=== PATIENT | female | born 1970 | race Caucasian/White ===

== ENCOUNTER → 2016-10-06 | Outpatient (REF) | payer BC ==
[2016-10-06 14:05] LABS: BASO % 0.6 % (0.0-1.0); EOS # 0.2 K/mm3 (0.0-0.50); EOS % 2.6 % (0.0-3.0); LARGE UNSTAINED CELL # 0.1 K/mm3 (0.0-0.4); LARGE UNSTAINED CELL % 1.6 % (0.0-4.0); LYMPH # 2.3 K/mm3 (1.5-4.5); LYMPH % 33.4 % (24.0-44.0); MEAN CORPUSCULAR HEMOGLOBIN 30.6 pg (27.0-33.0); MEAN CORPUSCULAR HGB CONC 33.6 g/dl (32.0-36.5); MEAN CORPUSCULAR VOLUME 91.1 fl (80.0-96.0); MONO # 0.3 K/mm3 (0.0-0.8); MONO % 4.5 % (0.0-5.0); NEUTROPHILS # 3.8 K/mm3 (1.8-7.7); NEUTROPHILS % 57.3 % (36.0-66.0); PLATELET COUNT, AUTOMATED 281 k/mm3 (150-450); RED CELL DISTRIBUTION WIDTH 12.5 % (11.5-14.5); WHITE BLOOD COUNT 6.6 K/mm3 (4.0-10.0)
[2016-10-06 14:21] LABS: ALBUMIN 3.5 GM/DL (3.2-5.2); ALBUMIN/GLOBULIN RATIO 0.92 (1.00-1.93); ALKALINE PHOSPHATASE 73 U/L (45-117); ALT/SGPT 14 U/L (12-78); ANION GAP 8 MEQ/L (8-16); AST/SGOT 10 U/L (15-37); BILIRUBIN,TOTAL 0.2 MG/DL (0.2-1.0); BLOOD UREA NITROGEN 15 MG/DL (7-18); CALCIUM LEVEL 8.7 MG/DL (8.5-10.1); CARBON DIOXIDE LEVEL 26 MEQ/L (21-32); CHLORIDE LEVEL 105 MEQ/L (98-107); CHOLESTEROL LEVEL 168 MG/DL (<200); CREATININE FOR GFR 0.59 MG/DL (0.55-1.02); GLOMERULAR FILTRATION RATE > 60.0 (>58); GLUCOSE, FASTING 73 MG/DL (70-105); POTASSIUM SERUM 4.1 MEQ/L (3.5-5.1); SODIUM LEVEL 139 MEQ/L (136-145); TOTAL PROTEIN 7.3 GM/DL (6.4-8.2); TRIGLYCERIDES LEVEL 145 MG/DL (<150)
== END ==
LOC: M SFHCPLAZ 10:19
PROVIDERS: ATTEND Nurse Practitioner Family
DX: Z00.00 Encounter for general adult medical examination without abnormal findings (principal); Z13.220 Encounter for screening for lipoid disorders

== ENCOUNTER → 2016-10-06 | Outpatient (REF) | payer BC | LOC: M SFHCPLAZ 11:23 | PROVIDERS: ATTEND Nurse Practitioner Family | DX: Z00.00 Encounter for general adult medical examination without abnormal findings (principal); Z13.220 Encounter for screening for lipoid disorders ==

== ENCOUNTER → 2017-03-15 | Outpatient (REF) | payer BC | LOC: M LAB REF 16:19 | PROVIDERS: ATTEND Physician Assistant | DX: J06.9 Acute upper respiratory infection, unspecified (principal) ==

== ENCOUNTER → 2017-11-03 | Outpatient (REF) | payer BC ==
[2017-11-03 13:26] LABS: BASO % 0.6 % (0.0-1.0); EOS # 0.2 10^3/uL (0.0-0.50); EOS % 2.8 % (0.0-3.0); HEMATOCRIT 38.2 % (36.0-47.0); IMMATURE GRANULOCYTE % 0.2 % (0-3.0); LYMPH # 2.3 10^3/uL (1.5-4.5); LYMPH % 37.7 % (24.0-44.0); MEAN CORPUSCULAR HEMOGLOBIN 30.9 pg (27.0-33.0); MEAN CORPUSCULAR VOLUME 90.7 fl (80.0-96.0); MONO # 0.3 10^3/uL (0.0-0.8); MONO % 5.4 % (0.0-5.0); NEUTROPHILS # 3.3 10^3/uL (1.8-7.7); NEUTROPHILS % 53.3 % (36.0-66.0); PLATELET COUNT, AUTOMATED 277 10^3/uL (150-450); RED BLOOD COUNT 4.21 10^6/uL (4.00-5.40); WHITE BLOOD COUNT 6.2 10^3/uL (4.0-10.0)
[2017-11-03 13:57] LABS: ALBUMIN 3.5 GM/DL (3.2-5.2); ALBUMIN/GLOBULIN RATIO 0.85 (1.00-1.93); ALKALINE PHOSPHATASE 81 U/L (45-117); ALT/SGPT 21 U/L (12-78); ANION GAP 7 MEQ/L (8-16); AST/SGOT 15 U/L (7-37); BILIRUBIN,TOTAL 0.3 MG/DL (0.2-1.0); BLOOD UREA NITROGEN 14 MG/DL (7-18); CALCIUM LEVEL 8.5 MG/DL (8.5-10.1); CARBON DIOXIDE LEVEL 26 MEQ/L (21-32); CHLORIDE LEVEL 107 MEQ/L (98-107); CHOLESTEROL LEVEL 176 MG/DL (<200); CREATININE FOR GFR 0.75 MG/DL (0.55-1.30); GLOMERULAR FILTRATION RATE > 60.0 (>58); GLUCOSE, FASTING 81 MG/DL (70-100); HDL CHOLESTEROL 83 MG/DL (>40); LDL CHOLESTEROL 71.8 MG/DL (<100); NON-HDL-C 93 MG/DL; POTASSIUM SERUM 4.2 MEQ/L (3.5-5.1); SODIUM LEVEL 140 MEQ/L (136-145); TOTAL PROTEIN 7.6 GM/DL (6.4-8.2); TRIGLYCERIDES LEVEL 106 MG/DL (<150)
== END ==
LOC: M SFHCPLAZ 10:17
DX: Z00.00 Encounter for general adult medical examination without abnormal findings (principal); F32.9 Major depressive disorder, single episode, unspecified; Z13.220 Encounter for screening for lipoid disorders
CPT/HCPCS: 84443

== ENCOUNTER → 2018-06-11 | Outpatient (CLI) | payer BC ==
[2018-06-11 11:13] LABS: HEMATOCRIT 40.7 % (36.0-47.0); HEMOGLOBIN 13.6 g/dl (12.0-15.5); MEAN CORPUSCULAR HEMOGLOBIN 30.4 pg (27.0-33.0); MEAN CORPUSCULAR HGB CONC 33.4 g/dl (32.0-36.5); MEAN CORPUSCULAR VOLUME 91.1 fl (80.0-96.0); PLATELET COUNT, AUTOMATED 317 10^3/uL (150-450); RED BLOOD COUNT 4.47 10^6/uL (4.00-5.40)
[2018-06-11 11:26] LABS: INR 0.93; PARTIAL THROMBOPLASTIN TIME 26.7 SECONDS (25.4-37.6); PROTHROMBIN TIME 12.6 SECONDS (12.1-14.4)
== END ==
LOC: M LAB 09:32
PROVIDERS: ATTEND Nurse Practitioner Family
DX: N93.9 Abnormal uterine and vaginal bleeding, unspecified (principal)

== ENCOUNTER → 2018-07-30 | Outpatient (CLI) | payer BC ==
--- NOTE | 2018-07-31 03:16 | REP ---
Clinical: Lumbago with right-sided sciatica. Technique: AP, lateral, bilateral oblique and coned-down views of the lumbosacral spine. Findings: Lordosis maintained. No acute fracture / compression injury or subluxation. Advanced degenerative disc osteophyte complex at L5-S1 includes endplate sclerosis, osteophytosis, hypertrophic facet changes and near complete disc space obliteration. Mild degenerative changes noted throughout the remainder of the visualized thoracolumbar spine including minimal endplate sclerosis and early marginal spurring. Impression: Advanced focal degenerative changes at L5-S1. Electronically Signed by Renato Galdamez MD 07/31/2018 03:08 A
== END ==
LOC: M WUC 18:53
PROVIDERS: ATTEND Physician Assistant
DX: M54.41 Lumbago with sciatica, right side (principal); M51.37 Other intervertebral disc degeneration, lumbosacral region

== ENCOUNTER → 2018-09-04 | Outpatient (CLI) | payer BC ==
--- NOTE | 2018-09-04 11:30 | REP ---
RIGHT ELBOW, FOUR VIEWS: HISTORY: Pain. There is no acute fracture or dislocation. The joint space is normal in appearance. IMPRESSION: There is no acute fracture or dislocation. Electronically Signed by Luis Antonio García MD 09/04/2018 11:31 A
== END ==
LOC: M WUC 10:30
PROVIDERS: ATTEND Physician Assistant
DX: M25.521 Pain in right elbow (principal)

== ENCOUNTER → 2018-10-16 | Outpatient (REF) | payer BC ==
[2018-10-16 12:21] LABS: BASO % 0.5 % (0.0-1.0); EOS # 0.1 10^3/uL (0.0-0.50); EOS % 1.1 % (0.0-3.0); HEMOGLOBIN 13.5 g/dl (12.0-15.5); LYMPH # 2.3 10^3/uL (1.5-4.5); LYMPH % 34.9 % (24.0-44.0); MEAN CORPUSCULAR HEMOGLOBIN 29.5 pg (27.0-33.0); MEAN CORPUSCULAR HGB CONC 32.1 g/dl (32.0-36.5); MEAN CORPUSCULAR VOLUME 91.9 fl (80.0-96.0); MONO # 0.4 10^3/uL (0.0-0.8); MONO % 5.3 % (0.0-5.0); NEUTROPHILS # 3.9 10^3/uL (1.8-7.7); NEUTROPHILS % 57.9 % (36.0-66.0); PLATELET COUNT, AUTOMATED 284 10^3/uL (150-450); RED BLOOD COUNT 4.57 10^6/uL (4.00-5.40); WHITE BLOOD COUNT 6.6 10^3/uL (4.0-10.0)
[2018-10-16 12:26] LABS: ALBUMIN 3.6 GM/DL (3.2-5.2); ALT/SGPT 18 U/L (12-78); BILIRUBIN,TOTAL 0.2 MG/DL (0.2-1.0); BLOOD UREA NITROGEN 14 MG/DL (7-18); CALCIUM LEVEL 8.3 MG/DL (8.5-10.1); CARBON DIOXIDE LEVEL 27 MEQ/L (21-32); CHLORIDE LEVEL 105 MEQ/L (98-107); CREATININE FOR GFR 0.78 MG/DL (0.55-1.30); GLOMERULAR FILTRATION RATE > 60.0 (>58); GLUCOSE, FASTING 86 MG/DL (70-100); POTASSIUM SERUM 4.1 MEQ/L (3.5-5.1); SODIUM LEVEL 140 MEQ/L (136-145); TOTAL PROTEIN 8.2 GM/DL (6.4-8.2)
== END ==
LOC: M SFHCPLAZ 08:27
PROVIDERS: ATTEND Nurse Practitioner Family
DX: R19.7 Diarrhea, unspecified (principal)

== ENCOUNTER → 2018-10-17 | Outpatient (REF) | payer BC | LOC: M SFHCPLAZ 10:37 | PROVIDERS: ATTEND Nurse Practitioner Family | DX: R19.7 Diarrhea, unspecified (principal) ==

== ENCOUNTER → 2018-11-09 | Outpatient (REF) | payer BC ==
[2018-11-09 18:02] LABS: THYROID STIMULATING HORMONE 1.04 uIU/ML (0.358-3.740); TOTAL 25(OH) VITAMIN D 27.8 NG/ML (30.0-100.0)
== END ==
LOC: M SFHCPLAZ 15:37
PROVIDERS: ATTEND Nurse Practitioner Family
DX: F34.1 Dysthymic disorder (principal)

== ENCOUNTER → 2018-12-19 | Outpatient (REF) | payer BC ==
[2018-12-19 12:48] LABS: CHOLESTEROL RISK RATIO 2.75 (<5)
== END ==
LOC: M SFHCPLAZ 10:18
PROVIDERS: ATTEND Nurse Practitioner Family
DX: Z13.220 Encounter for screening for lipoid disorders (principal)

== ENCOUNTER → 2019-01-03 | Outpatient (REF) | payer BC ==
[2019-01-03 15:56] LABS: BLOOD UREA NITROGEN 14 MG/DL (7-18); CREATININE FOR GFR 0.75 MG/DL (0.55-1.30); FOLATE 18.2 NG/ML; GLOMERULAR FILTRATION RATE > 60.0 (>58); RHEUMATOID FACTOR QUANT < 10.0 IU/ML (<15.0); TOTAL 25(OH) VITAMIN D 26.6 NG/ML (30.0-100.0); VITAMIN B12 LEVEL 323 PG/ML
[2019-01-06 14:38] LABS: ANTINUCLEAR ANTIBODIES DIRECT Negative (Negative); VITAMIN B1 LEVEL WHOLE BLOOD 134.1 nmol/L (66.5-200.0); VITAMIN B6,PYRIDOXAL PHOSPHATE 20.5 ug/L (2.0-32.8); VITAMIN E(ALPHA TOCOPHEROL) 12.6 mg/L (7.0-25.1); VITAMIN E(GAMMA TOCOPHEROL) 2.1 mg/L (0.5-5.5)
== END ==
LOC: M LABNEURO 08:56
PROVIDERS: ATTEND Psychiatry & Neurology Neurology
DX: R51 Headache (principal); G31.84 Mild cognitive impairment of uncertain or unknown etiology

== ENCOUNTER → 2019-01-09 | Outpatient (CLI) | payer BC ==
--- NOTE | 2019-01-09 16:45 | REPMRS ---
Patient History The patient states she has not had a clinical breast exam in over a year. Family history of colorectal cancer at age 50 or over in maternal grandmother. Taking hormonal contraceptives for 7 years 3 months. Took unspecified hormones for 2 years 6 months. 3D TOMOSYNTHESIS WAS PERFORMED. The Cheo Medel lifetime risk for breast cancer is 12.5%. Digital Woman Screen Mammo: January 09, 2019 - Exam #: [id number] Bilateral CC and MLO view(s) were taken. Technologist: Marie Byers, Technologist Prior study comparison: September 27, 2017, digital woman screen mammo performed at [facility]. April 18, 2014, bilateral bilat screen digital mammo, performed at [facility] ([place] FINDINGS: The breast tissue is heterogeneously dense. This may lower the sensitivity of mammography. There has been no change in the appearance of the mammogram from the prior studies. There is a moderate amount of residual fibroglandular tissue which is fairly symmetric. There is no interval development of dominant mass, areas of architectural distortion, or clustered microcalcification typical of malignancy. Assessment: BI-RADS/ACR category 1 mammogram. Negative Mammogram. Recommendation Routine screening mammogram in 1 year (for women over age 40). This mammogram was interpreted with the aid of an FDA-approved computer-aided dectection system. Electronically Signed By: Diogenes Morales MD 01/09/19 0294
== END ==
LOC: M WHC 08:07
PROVIDERS: ATTEND Nurse Practitioner Family
DX: Z12.31 Encounter for screening mammogram for malignant neoplasm of breast (principal); Z92.0 Personal history of contraception

== ENCOUNTER → 2020-04-29 | Outpatient (CLI) | payer BC, OTHER ==
[2020-04-29 21:21] LABS: HEMOGLOBIN A1c 5.3 %
[2020-04-29 21:35] LABS: ALBUMIN 3.8 GM/DL (3.2-5.2); ALT/SGPT 22 U/L (12-78); BILIRUBIN,TOTAL 0.4 MG/DL (0.2-1.0); BLOOD UREA NITROGEN 12 MG/DL (7-18); CALCIUM LEVEL 8.9 MG/DL (8.5-10.1); CARBON DIOXIDE LEVEL 27 MEQ/L (21-32); CHLORIDE LEVEL 103 MEQ/L (98-107); CHOLESTEROL LEVEL 196 MG/DL (<200); CREATININE FOR GFR 0.68 MG/DL (0.55-1.30); FREE T4 1.05 NG/DL (0.76-1.46); GLOMERULAR FILTRATION RATE > 60.0 (>58); GLUCOSE, FASTING 86 MG/DL (70-100); HDL CHOLESTEROL 70 MG/DL (>40); LDL CHOLESTEROL 97 MG/DL (<100); NON-HDL-C 126 MG/DL; POTASSIUM SERUM 4.1 MEQ/L (3.5-5.1); SODIUM LEVEL 137 MEQ/L (136-145); TOTAL 25(OH) VITAMIN D 32.8 NG/ML (30.0-100.0); TOTAL PROTEIN 7.9 GM/DL (6.4-8.2); TRIGLYCERIDES LEVEL 145 MG/DL (<150)
== END ==
LOC: M PLALAB 12:10
PROVIDERS: ATTEND Nurse Practitioner Family
DX: Z13.220 Encounter for screening for lipoid disorders (principal); E55.9 Vitamin D deficiency, unspecified; E78.5 Hyperlipidemia, unspecified

== ENCOUNTER → 2021-04-16 | Outpatient (CLI) | payer OTHER ==
[2021-04-16 15:59] LABS: BASO # 0.1 10^3/uL (0.0-0.2); BASO % 0.8 % (0.0-1.0); EOS # 0.2 10^3/uL (0.0-0.5); HEMATOCRIT 37.9 % (36.0-47.0); HEMOGLOBIN 12.2 g/dl (12.0-15.5); LYMPH # 2.3 10^3/uL (1.5-5.0); LYMPH % 31.8 % (24.0-44.0); MEAN CORPUSCULAR HEMOGLOBIN 30.3 pg (27.0-33.0); MEAN CORPUSCULAR HGB CONC 32.2 g/dl (32.0-36.5); MEAN CORPUSCULAR VOLUME 94.3 fl (80.0-96.0); MONO # 0.4 10^3/uL (0.0-0.8); MONO % 4.9 % (2.0-8.0); NEUTROPHILS # 4.4 10^3/uL (1.5-8.5); NEUTROPHILS % 60.2 % (36.0-66.0); PLATELET COUNT, AUTOMATED 358 10^3/uL (150-450); RED BLOOD COUNT 4.02 10^6/uL (4.00-5.40); WHITE BLOOD COUNT 7.3 10^3/uL (4.0-10.0)
[2021-04-16 16:38] LABS: ALT/SGPT 17 U/L (12-78); BILIRUBIN,TOTAL 0.2 MG/DL (0.2-1.0); BLOOD UREA NITROGEN 15 MG/DL (7-18); CALCIUM LEVEL 9.1 MG/DL (8.5-10.1); CARBON DIOXIDE LEVEL 28 MEQ/L (21-32); CHLORIDE LEVEL 107 MEQ/L (98-107); GLOMERULAR FILTRATION RATE > 60.0 (>58); GLUCOSE, FASTING 130 MG/DL (70-100); POTASSIUM SERUM 4.6 MEQ/L (3.5-5.1); SODIUM LEVEL 140 MEQ/L (136-145); TRIGLYCERIDES LEVEL 154 MG/DL (<150)
[2021-04-16 16:39] LABS: ALBUMIN 3.2 GM/DL (3.2-5.2); CHOLESTEROL LEVEL 190 MG/DL (<200); CHOLESTEROL RISK RATIO 2.567 (<5); FREE T4 0.96 NG/DL (0.76-1.46); HDL CHOLESTEROL 74 MG/DL (>40); LDL CHOLESTEROL 85 MG/DL (<100); NON-HDL-C 116 MG/DL; THYROID STIMULATING HORMONE 0.885 uIU/ML (0.358-3.740); TOTAL PROTEIN 7.2 GM/DL (6.4-8.2)
== END ==
LOC: M PLALAB 11:27
PROVIDERS: ATTEND Nurse Practitioner Family
DX: E78.5 Hyperlipidemia, unspecified (principal); E55.9 Vitamin D deficiency, unspecified; Z79.1 Long term (current) use of non-steroidal anti-inflammatories (NSAID)

== ENCOUNTER 2021-09-23 16:21 | Emergency (ER) | payer OTHER ==
[~2021-09-23] VITALS: Ht 160 cm; Wt 65.7 kg
[2021-09-23] MEDS ORDERED: TOPI100T9 (16:55)
[2021-09-23] MEDS ORDERED: XULA1DIS (16:55)
[2021-09-23] MEDS ORDERED: CITA20TA6 (16:55)
[2021-09-23] MEDS ORDERED: NAPR-832 (16:56)
[2021-09-23] MEDS ORDERED: DOXY50CA (16:56)
[2021-09-23 19:43] VITALS: BP 134/89
== END 2021-09-23 20:17 | disposition home or self-care (01) ==
LOC: M ED 16:21
DX: U07.1 COVID-19 (principal); G43.909 Migraine, unspecified, not intractable, without status migrainosus

== ENCOUNTER → 2022-03-01 | Outpatient (CLI) | payer OTHER ==
[~2022-03-01] MED LIST: CITA20TA6; DOXY50CA; NAPR-832; TOPI100T9; XULA1DIS
[2022-03-01 14:32] LABS: ALBUMIN 3.7 GM/DL (3.2-5.2); ALT/SGPT 24 U/L (12-78); BILIRUBIN,TOTAL 0.3 MG/DL (0.2-1.0); BLOOD UREA NITROGEN 14 MG/DL (7-18); CALCIUM LEVEL 9.2 MG/DL (8.5-10.1); CARBON DIOXIDE LEVEL 25 MEQ/L (21-32); CHLORIDE LEVEL 105 MEQ/L (98-107); CHOLESTEROL LEVEL 241 MG/DL (<200); CHOLESTEROL RISK RATIO 3.129 (<5); CREATININE FOR GFR 0.79 MG/DL (0.55-1.30); GLOMERULAR FILTRATION RATE > 60.0 (>51); GLUCOSE, FASTING 92 MG/DL (70-100); HDL CHOLESTEROL 77 MG/DL (>40); LDL CHOLESTEROL 139 MG/DL (<100); NON-HDL-C 164 MG/DL; POTASSIUM SERUM 4.4 MEQ/L (3.5-5.1); SODIUM LEVEL 136 MEQ/L (136-145); TOTAL PROTEIN 7.8 GM/DL (6.4-8.2); TRIGLYCERIDES LEVEL 127 MG/DL (<150)
[2022-03-01 15:02] LABS: TOTAL 25(OH) VITAMIN D 28.2 NG/ML (30.0-100.0)
[2022-03-01 16:26] LABS: HEMOGLOBIN A1c 5.3 %
== END ==
LOC: M PLALAB 09:42
PROVIDERS: ATTEND Nurse Practitioner Family
DX: E55.9 Vitamin D deficiency, unspecified (principal); E78.5 Hyperlipidemia, unspecified; R73.09 Other abnormal glucose

== ENCOUNTER → 2023-05-17 | Outpatient (CLI) | payer BC ==
[2023-05-17 15:43] LABS: BASO # 0.1 10^3/uL (0.0-0.2); BASO % 0.6 % (0.0-1.0); EOS # 0.2 10^3/uL (0.0-0.5); EOS % 2.1 % (0.0-3.0); HEMATOCRIT 39.3 % (36.0-47.0); HEMOGLOBIN 13.4 g/dl (12.0-15.5); LYMPH # 3.8 10^3/uL (1.5-5.0); LYMPH % 44.3 % (24.0-44.0); MEAN CORPUSCULAR HEMOGLOBIN 31.3 pg (27.0-33.0); MEAN CORPUSCULAR HGB CONC 34.1 g/dl (32.0-36.5); MEAN CORPUSCULAR VOLUME 91.8 fl (80.0-96.0); MONO # 0.5 10^3/uL (0.0-0.8); MONO % 6.3 % (2.0-8.0); NEUTROPHILS % 46.5 % (36.0-66.0); PLATELET COUNT, AUTOMATED 271 10^3/uL (150-450); RED BLOOD COUNT 4.28 10^6/uL (4.00-5.40); WHITE BLOOD COUNT 8.6 10^3/uL (4.0-10.0)
[2023-05-17 16:07] LABS: ALBUMIN 3.8 G/DL (3.2-5.2); ALKALINE PHOSPHATASE 116 U/L (46-116); ALT/SGPT 58 U/L (7.0-40); AST/SGOT 28 U/L (<34); BILIRUBIN,TOTAL 0.4 MG/DL (0.3-1.2); BLOOD UREA NITROGEN 22 MG/DL (9-23); CALCIUM LEVEL 8.7 MG/DL (8.5-10.1); CARBON DIOXIDE LEVEL 24 MMOL/L (20-31); CHLORIDE LEVEL 107 MMOL/L (98-107); CHOLESTEROL LEVEL 225 MG/DL (<200); CHOLESTEROL RISK RATIO 3.59 (<5); CREATININE FOR GFR 0.68 MG/DL (0.55-1.30); GLOMERULAR FILTRATION RATE > 60.0 (>51); GLUCOSE, FASTING 88 MG/DL (60-100); HDL CHOLESTEROL 62.6 MG/DL (>40); LDL CHOLESTEROL 95.8 MG/DL (<100); NON-HDL-C 162.4 MG/DL; POTASSIUM SERUM 4.3 MMOL/L (3.5-5.1); SODIUM LEVEL 140 MMOL/L (136-145); TOTAL PROTEIN 7.4 G/DL (5.7-8.2); TRIGLYCERIDES LEVEL 333 MG/DL (<150)
[2023-05-17 16:09] LABS: TOTAL 25(OH) VITAMIN D 18.5 NG/ML (20.0-100.0)
== END ==
LOC: M PLALAB 14:45
PROVIDERS: ATTEND Nurse Practitioner Family
DX: E78.5 Hyperlipidemia, unspecified (principal); E55.9 Vitamin D deficiency, unspecified; F34.1 Dysthymic disorder

== ENCOUNTER → 2023-07-04 | Outpatient (REF) | payer BC ==
[2023-07-04 18:10] LABS: BASO # 0.1 10^3/uL (0.0-0.2); EOS # 0.2 10^3/uL (0.0-0.5); EOS % 2.9 % (0.0-3.0); HEMATOCRIT 41.3 % (36.0-47.0); HEMOGLOBIN 13.8 g/dl (12.0-15.5); LYMPH # 3.2 10^3/uL (1.5-5.0); LYMPH % 44.6 % (24.0-44.0); MEAN CORPUSCULAR HEMOGLOBIN 31.2 pg (27.0-33.0); MEAN CORPUSCULAR HGB CONC 33.4 g/dl (32.0-36.5); MEAN CORPUSCULAR VOLUME 93.4 fl (80.0-96.0); MONO # 0.4 10^3/uL (0.0-0.8); NEUTROPHILS # 3.4 10^3/uL (1.5-8.5); NEUTROPHILS % 46.2 % (36.0-66.0); PLATELET COUNT, AUTOMATED 302 10^3/uL (150-450); RED BLOOD COUNT 4.42 10^6/uL (4.00-5.40); WHITE BLOOD COUNT 7.3 10^3/uL (4.0-10.0)
[2023-07-04 18:19] LABS: INR 1.05; PARTIAL THROMBOPLASTIN TIME 26.7 SECONDS (24.8-34.2); PROTHROMBIN TIME 13.4 SECONDS (12.5-14.5)
[2023-07-04 18:23] LABS: C REACTIVE PROTEIN QUANTITATIV < 0.40 MG/DL (<1.0)
[2023-07-04 18:25] LABS: RHEUMATOID FACTOR QUANT < 3.5 IU/ML (<14)
[2023-07-04 23:43] LABS: ERYTHROCYTE SEDIMENTATION RATE 17 mm/hr (0-30)
== END ==
LOC: M LABDRAWP 17:41
PROVIDERS: ATTEND Nurse Practitioner Family
DX: M25.50 Pain in unspecified joint (principal); R23.3 Spontaneous ecchymoses

== ENCOUNTER → 2023-12-29 | Outpatient (REF) | payer BC ==
[2023-12-29 13:53] LABS: APPEARANCE, URINE MANUAL CLEAR (CLEAR); COLOR, URINE MANUAL ORANGE (YELLOW)
[2023-12-29 13:54] LABS: BILIRUBIN, URINE MANUAL OBSCURED (NEGATIVE); BLOOD URINE MANUAL NEGATIVE (NEGATIVE); GLUCOSE, URINE (UA) MANUAL NEGATIVE (NEGATIVE); KETONE, URINE MANUAL NEGATIVE (NEGATIVE); LEUKOCYTE ESTERASE, URINE MAN NEGATIVE (NEGATIVE); NITRITE, URINE MANUAL OBSCURED (NEGATIVE); PROTEIN, URINE MANUAL NEGATIVE (NEGATIVE); SPECIFIC GRAVITY,URINE MANUAL 1.018 (1.002-1.035); UROBILINOGEN, URINE MANUAL OBSCURED mg/dl (NORMAL)
[2023-12-29 13:58] LABS: AMORPHOUS SEDIMENT, URINE SMALL AMOUNT (NEGATIVE); BACTERIA, URINE NONE SEEN; HYALINE CAST, URINE NONE SEEN /lpf (0-1); RBC, URINE 0-1 /hpf (0-3); SQUAMOUS EPITHELIAL CELL URINE SMALL AMOUNT /hpf (SMALL AMT); WBC, URINE 0-1 /hpf (0-3)
== END ==
LOC: M SFHCPLAZ 12:14
PROVIDERS: ATTEND Nurse Practitioner Family
DX: N39.0 Urinary tract infection, site not specified (principal)

== ENCOUNTER → 2024-02-19 | Outpatient (CLI) | payer BC ==
[2024-02-19 16:05] LABS: BASO # 0.1 10^3/uL (0.0-0.2); BASO % 0.7 % (0.0-1.0); EOS # 0.2 10^3/uL (0.0-0.5); EOS % 2.8 % (0.0-3.0); HEMATOCRIT 36.4 % (36.0-47.0); HEMOGLOBIN 12.3 g/dl (12.0-15.5); LYMPH # 3.2 10^3/uL (1.5-5.0); LYMPH % 46.6 % (24.0-44.0); MEAN CORPUSCULAR HEMOGLOBIN 31.3 pg (27.0-33.0); MEAN CORPUSCULAR HGB CONC 33.8 g/dl (32.0-36.5); MEAN CORPUSCULAR VOLUME 92.6 fl (80.0-96.0); MONO # 0.7 10^3/uL (0.0-0.8); MONO % 9.5 % (2.0-8.0); NEUTROPHILS # 2.8 10^3/uL (1.5-8.5); NEUTROPHILS % 40.1 % (36.0-66.0); PLATELET COUNT, AUTOMATED 230 10^3/uL (150-450); RED BLOOD COUNT 3.93 10^6/uL (4.00-5.40); WHITE BLOOD COUNT 6.9 10^3/uL (4.0-10.0)
[2024-02-19 16:37] LABS: ALBUMIN 3.9 G/DL (3.2-5.2); ALKALINE PHOSPHATASE 120 U/L (46-116); ALT/SGPT 37 U/L (7.0-40); AST/SGOT 20 U/L (<34); BILIRUBIN,TOTAL 0.4 MG/DL (0.3-1.2); BLOOD UREA NITROGEN 23 MG/DL (9-23); CARBON DIOXIDE LEVEL 24 MMOL/L (20-31); CHLORIDE LEVEL 110 MMOL/L (98-107); CHOLESTEROL LEVEL 174 MG/DL (<200); CHOLESTEROL RISK RATIO 2.91 (<5); CREATININE FOR GFR 0.72 MG/DL (0.55-1.30); FREE T4 0.84 NG/DL (0.89-1.76); GLOMERULAR FILTRATION RATE > 60.0 (>51); GLUCOSE, FASTING 89 MG/DL (60-100); HDL CHOLESTEROL 59.7 MG/DL (>40); LDL CHOLESTEROL 94.1 MG/DL (<100); NON-HDL-C 114.3 MG/DL; POTASSIUM SERUM 4.1 MMOL/L (3.5-5.1); SODIUM LEVEL 140 MMOL/L (136-145); TOTAL PROTEIN 7.5 G/DL (5.7-8.2); TRIGLYCERIDES LEVEL 101 MG/DL (<150)
== END ==
LOC: M PLALAB 14:11
PROVIDERS: ATTEND Nurse Practitioner Family
DX: G43.009 Migraine without aura, not intractable, without status migrainosus (principal); E78.5 Hyperlipidemia, unspecified; E55.9 Vitamin D deficiency, unspecified

== ENCOUNTER → 2024-04-08 | Outpatient (CLI) | payer BC ==
[2024-04-08 16:15] LABS: BLOOD UREA NITROGEN 21 MG/DL (9-23); CREATININE FOR GFR 0.72 MG/DL (0.55-1.30); GLOMERULAR FILTRATION RATE > 60.0 (>51)
== END ==
LOC: M PLAIMG 13:47
PROVIDERS: ATTEND Orthopaedic Surgery
DX: M71.341 Other bursal cyst, right hand (principal); M18.11 Unilateral primary osteoarthritis of first carpometacarpal joint, right hand

== ENCOUNTER → 2024-06-27 | Outpatient (CLI) | payer BC ==
[2024-06-27 12:52] LABS: URIC ACID 6.2 MG/DL (3.1-7.8)
[2024-06-27 12:57] LABS: FREE T4 0.94 NG/DL (0.89-1.76); THYROID STIMULATING HORMONE 1.32 uIU/ML (0.55-4.78)
[2024-06-28 14:08] LABS: ANA SCREEN, IFA NEGATIVE (NEGATIVE)
[2024-06-29 02:31] LABS: CYCLIC CITRULLINATED PEPTIDE < 16 UNITS (<20)
== END ==
LOC: M PLALAB 11:29
PROVIDERS: ATTEND Nurse Practitioner Family
DX: M25.50 Pain in unspecified joint (principal)

== ENCOUNTER → 2024-06-27 | Outpatient (CLI) | payer BC ==
[2024-06-27 12:30] LABS: BASO % 0.6 % (0.0-1.0); EOS # 0.1 10^3/uL (0.0-0.5); EOS % 1.1 % (0.0-3.0); HEMATOCRIT 39.8 % (36.0-47.0); HEMOGLOBIN 13.3 g/dl (12.0-15.5); LYMPH # 2.6 10^3/uL (1.5-5.0); LYMPH % 41.8 % (24.0-44.0); MEAN CORPUSCULAR HEMOGLOBIN 31.3 pg (27.0-33.0); MEAN CORPUSCULAR HGB CONC 33.4 g/dl (32.0-36.5); MEAN CORPUSCULAR VOLUME 93.6 fl (80.0-96.0); MONO # 0.4 10^3/uL (0.0-0.8); MONO % 6.1 % (2.0-8.0); NEUTROPHILS # 3.1 10^3/uL (1.5-8.5); NEUTROPHILS % 50.2 % (36.0-66.0); PLATELET COUNT, AUTOMATED 265 10^3/uL (150-450); RED BLOOD COUNT 4.25 10^6/uL (4.00-5.40); WHITE BLOOD COUNT 6.2 10^3/uL (4.0-10.0)
[2024-06-27 12:43] LABS: INR 0.94; PARTIAL THROMBOPLASTIN TIME 26.8 SECONDS (24.8-34.2); PROTHROMBIN TIME 12.9 SECONDS (12.5-14.5)
[2024-06-27 12:54] LABS: ALKALINE PHOSPHATASE 121 U/L (35-104); ALT/SGPT 57 U/L (7.0-40); AST/SGOT 33 U/L (<34); BILIRUBIN,TOTAL 0.4 MG/DL (0.3-1.2); BLOOD UREA NITROGEN 17 MG/DL (9-23); CALCIUM LEVEL 9.5 MG/DL (8.5-10.1); CARBON DIOXIDE LEVEL 28 MMOL/L (20-31); CHLORIDE LEVEL 104 MMOL/L (98-107); CREATININE FOR GFR 0.65 MG/DL (0.55-1.30); GLOMERULAR FILTRATION RATE > 60.0 (>51); GLUCOSE, FASTING 96 MG/DL (60-100); POTASSIUM SERUM 4.3 MMOL/L (3.5-5.1); SODIUM LEVEL 141 MMOL/L (136-145); TOTAL PROTEIN 7.9 G/DL (5.7-8.2)
== END ==
LOC: M PLALAB 11:26
PROVIDERS: ATTEND Family Medicine
DX: Z01.818 Encounter for other preprocedural examination (principal)

== ENCOUNTER → 2024-07-01 | Outpatient (CLI) | payer BC | LOC: M PLAIMG 16:09 | PROVIDERS: ATTEND Nurse Practitioner Family | DX: M25.561 Pain in right knee (principal); M25.562 Pain in left knee; M17.0 Bilateral primary osteoarthritis of knee ==

== ENCOUNTER → 2024-08-13 | Outpatient (CLI) | payer BC ==
[2024-08-14 13:37] LABS: MUMPS VIRUS IgG ANTIBODY < 9.00 AU/mL (>10.99)
== END ==
LOC: M PLALAB 09:41
PROVIDERS: ATTEND Nurse Practitioner Family
DX: Z01.84 Encounter for antibody response examination (principal)

== ENCOUNTER → 2024-08-16 | Outpatient (CLI) | payer BC ==
[2024-08-16 15:50] LABS: ALBUMIN 3.9 G/DL (3.2-5.2); BILIRUBIN,DIRECT 0.1 MG/DL (<0.4); BILIRUBIN,TOTAL 0.4 MG/DL (0.3-1.2); TOTAL PROTEIN 7.8 G/DL (5.7-8.2)
[2024-08-16 15:51] LABS: THYROID STIMULATING HORMONE 1.751 uIU/ML (0.55-4.78)
[2024-08-16 15:52] LABS: FREE T4 1.01 NG/DL (0.89-1.76)
== END ==
LOC: M PLALAB 11:31
PROVIDERS: ATTEND Nurse Practitioner Family
DX: E03.8 Other specified hypothyroidism (principal); Z11.1 Encounter for screening for respiratory tuberculosis

== ENCOUNTER → 2024-10-01 | Outpatient (REF) | payer BC | LOC: M SFHCPLAZ 16:53 | PROVIDERS: ATTEND Nurse Practitioner Family | DX: J02.9 Acute pharyngitis, unspecified (principal) ==

== ENCOUNTER → 2024-11-01 | Outpatient (REF) | payer BC ==
[~2024-11-01] MED LIST changes: +TOPI-257; -TOPI100T9
[2024-11-01 13:29] LABS: APPEARANCE, URINE CLEAR (CLEAR); BACTERIA, URINE AUTO NEGATIVE (NEGATIVE); BILIRUBIN, URINE AUTO NEGATIVE (NEGATIVE); BLOOD, URINE BLOOD NEGATIVE (NEGATIVE); COLOR, URINE STRAW (YELLOW); GLUCOSE, URINE (UA) AUTO NEGATIVE (NEGATIVE); KETONE, URINE AUTO NEGATIVE (NEGATIVE); LEUKOCYTE ESTERASE, URINE AUTO NEGATIVE (NEGATIVE); MUCUS, URINE SMALL (NEGATIVE); NITRITE, URINE AUTO NEGATIVE (NEGATIVE); PROTEIN, URINE AUTO NEGATIVE (NEGATIVE); RBC, URINE AUTO 1 /HPF (0-3); SQUAMOUS EPITHELIAL CELL UR AU 0 /HPF (0-6); UROBILINOGEN, URINE AUTO 0.2 mg/dL (0.0-2.0); WBC, URINE AUTO 1 /HPF (0-3)
== END ==
LOC: M SFHCPLAZ 12:56
PROVIDERS: ATTEND Nurse Practitioner Family
DX: R39.9 Unspecified symptoms and signs involving the genitourinary system (principal)